=== PATIENT | female | born 1990 | race African-American/Black ===

== ENCOUNTER 2021-07-31 09:47 | Emergency (ER) | payer SELFPAY ==
[2021-07-31 10:27] LABS: Hemoglobin 8.1 g/dL (12.0-15.5); Mean Corpuscular HGB CONC 27.7 g/dL (32.0-36.0); Mean Corpuscular Hemoglobin 17.5 pg (27.0-33.0); Mean Corpuscular Volume 62.9 fl (81.6-98.3); Platelet Count 279 10x3/uL (150-450); RBC Distribution Width 18.5 % (11.5-14.5); Red Blood Cell (RBC) Count 4.64 10x6/uL (3.90-5.03); White Blood Cell (WBC) Count 3.2 10x3/uL (3.5-10.5)
[2021-07-31 10:37] LABS: PTT 22.1 sec (22.0-33.0); Prothrombin Time 10.9 sec (9.5-12.1)
[2021-07-31 10:39] LABS: Anion Gap 13 mmol/L (10-20); BUN (Urea Nitrogen) 6 mg/dL (7.0-18.7); Calc. Creatinine Clearance 0 mL/min (70-130); Carbon Dioxide 22 mmol/L (22-29); Chloride 110 mmol/L (98-107); Glucose 101 mg/dL (70-105); Potassium 3.6 mmol/L (3.5-5.1); Sodium 141 mmol/L (136-145)
[2021-07-31 10:47] LABS: BHCG - Serum Negative (NEGATIVE); Pregs Control Background? CLEAR/WHITE (CLR/WHITE); Pregs Control Bar Appear? YES (CONTROL BAR)
[2021-07-31 10:58] LABS: #Monocytes 0.2 10x3/uL (0.0-1.1); %Basophils 0.6 % (0.0-2.0); %Eosinophils 1.3 % (0.0-6.0); %Lymphocytes 46.6 % (18.0-47.0); %Monocytes 7.5 % (0.0-10.0); Anisocytosis SLIGHT = 6-15 cells (100X) (0-5/hpf); Reflex for Review?? YES
[2021-07-31 10:59] LABS: Hypochromia MODERATE=16-30 cells (100X) (0-5/hpf); Microcytosis MARKED = >30 cells (100X) (0-5/hpf); Poikilocytosis MODERATE=16-30 cells (100X) (0-5/hpf); Schistocytes SLIGHT = 2-5 cells (100X) (0-1/hpf)
[2021-07-31 11:00] LABS: Elliptocytes MODERATE= 6-15 cells (100X) (0-1/hpf); Ovalocytes MODERATE= 6-15 cells (100X) (0-1/hpf); Platelet Morphology Comment Appears Adequate
== END 2021-07-31 11:30 | disposition home or self-care (01) ==
LOC: CSHERS 09:47
DX: N93.9 Abnormal uterine and vaginal bleeding, unspecified (principal); D64.9 Anemia, unspecified
CPT/HCPCS: 36415; 80048; 84703; 85025; 85060; 85610; 85730; 86900; 86901

== ENCOUNTER 2022-12-14 09:08 | Day surgery (SDC) | payer BC, SELFPAY ==
[2022-12-14] MEDS ORDERED: Bupivacaine PF 0.5% 30 ML VIAL ONE (09:48)
[2022-12-14] MEDS ORDERED: EPINEPHrine 1 MG/ML VIAL ONE (09:48)
[2022-12-14] MEDS ORDERED: CEFAZOLIN 2 GM VIAL ONE (10:43)
== END 2022-12-14 13:10 | disposition home or self-care (01) ==
LOC: CSHSDC 09:08
PROVIDERS: ATTEND Podiatrist Foot & Ankle Surgery
PROC: 0LQW0ZZ Repair Left Foot Tendon, Open Approach (ICD-10-PCS; principal; 2022-12-14)
DX: S96.122A Laceration of muscle and tendon of long extensor muscle of toe at ankle and foot level, left foot, initial encounter (principal); W26.0XXA Contact with knife, initial encounter
CPT/HCPCS: J0171; S0020